=== PATIENT | male | born 1935 | race Caucasian/White ===

== ENCOUNTER → 2017-03-14 | Outpatient (CLI) | payer OTHER ==
[~2017-03-14] MED LIST: AMLO2.5T PO; CALC625T PO; CHOL100018 PO; CYAN500 PO; PYRI100T2 PO; WARF-57 PO; WARF2.5T85 PO
== END | disposition home or self-care (01) ==
LOC: SHCH 12:07
PROVIDERS: ATTEND Internal Medicine Cardiovascular Disease
DX: I10 Essential (primary) hypertension (principal); I49.5 Sick sinus syndrome; Z95.0 Presence of cardiac pacemaker
CPT/HCPCS: 93306

== ENCOUNTER 2017-05-17 13:07 | Inpatient (IN) | payer OTHER ==
[~2017-05-17] VITALS: Ht 172.7 cm; Wt 81.6 kg
[~2017-05-17 13:07] MED LIST changes: -CALC625T PO; -WARF-57 PO; -WARF2.5T85 PO
[2017-05-17] MEDS ORDERED: ONDANSETRON HCL 4 MG/2 ML VIAL ONE (13:32)
[2017-05-17 15:10] LABS: CREATININE 1.2 mg/dL (0.5-1.5); POTASSIUM 4.1 mmol/L (3.5-5.1)
[2017-05-17] MEDS ORDERED: IOPAMIDOL-370 75 ML VIAL IV ONE (15:30)
[2017-05-17] MEDS ORDERED: SODIUM CHLORIDE 0.9% 1000ML 1,000 ML IV ONE (19:53)
[2017-05-18 00:45] VITALS: BP 107/75
[2017-05-18] MEDS ORDERED: ALBUTEROL SULFATE 0.083% 2.5 MG/3 ML INH IH PRN (01:30)
[2017-05-18] MEDS ORDERED: POTASSIUM CHLORIDE 20MEQ/100ML 100 ML IV PRN (01:30)
[2017-05-18] MEDS ORDERED: POTASSIUM CHLORIDE 10% ELIXIR 20 MEQ/15 ML UDCUP PO PRN (01:30)
[2017-05-18] MEDS ORDERED: LIDOCAINE HCL-MPF 1% 2ML VIAL IVP PRN (01:30)
[2017-05-18] MEDS ORDERED: HYDRALAZINE HCL 20 MG/ML VIAL IV PRN ×2 (01:30→07:30)
[2017-05-18] MEDS ORDERED: ONDANSETRON HCL 4 MG/2 ML VIAL IVP PRN (01:30)
[2017-05-18 03:37] LABS: HEMATOCRIT 46.1 % (42-54); MEAN CORPUSCULAR HEMOGLOBIN 31.5 pg (27.0-33.0); MEAN CORPUSCULAR HGB CONC 34.3 g/dL (32.0-36.0); MEAN CORPUSCULAR VOLUME 91.8 fL (79-99); PLATELET COUNT (AUTO) 236 K/uL (130-400); RED BLOOD CELL COUNT(AUTO) 5.02 MIL/uL (4.50-6.20); RED CELL DISTRIBUTION WIDTH 13.3 % (11.0-15.5); WHITE BLOOD COUNT (AUTO) 23.1 K/uL (4.8-10.8)
[2017-05-18 03:40] VITALS: BP 107/60
[2017-05-18 03:43] LABS: INR 2.86 (0.85-1.15); PROTHROMBIN TIME 29.4 SEC (9.6-11.6)
[2017-05-18 03:45] LABS: CREATININE 1.3 mg/dL (0.5-1.5); POTASSIUM 3.9 mmol/L (3.5-5.1)
[2017-05-18 07:00] VITALS: BP 120/71
[2017-05-18] MEDS ORDERED: ONDANSETRON HCL 4 MG/2 ML VIAL IV PRN (07:30)
[2017-05-18] MEDS ORDERED: MAG HYDROX/AL HYDROX/SIMETH ES 30 ML SUSP UDCUP PO PRN (07:30)
[2017-05-18] MEDS ORDERED: GUAIFENESIN-DM 200/20 MG 10 ML PO PRN (07:30)
[2017-05-18] MEDS ORDERED: LACTULOSE 20 GM/30 ML UDCUP PO PRN (07:30)
[2017-05-18] MEDS ORDERED: NITROGLYCERIN 0.4 MG SL TAB SL PRN (07:30)
[2017-05-18] MEDS ORDERED: ACETAMINOPHEN 325 MG TAB PO PRN ×2 (07:30)
[2017-05-18] MEDS ORDERED: MORPHINE SULFATE 2 MG/ML 1ML SYG IVP PRN (07:45)
[2017-05-18] MEDS ORDERED: ACETAMINOPHEN-CODEINE 300/30MG TAB PO PRN (07:45)
[2017-05-18] MEDS ORDERED: LABETALOL 20 MG/4 ML DISP.SYRIN IV PRN (07:45)
[2017-05-18] MEDS ORDERED: FAMOTIDINE/PF 20 MG/2 ML VIAL IV SCH (09:00)
[2017-05-18] MEDS: FAMOTIDINE/PF 20 MG/2 ML VIAL IV SCH (09:36)
[2017-05-18] MEDS: LEVOFLOXACIN 500 MG/D5W 100 ML 100 ML IV SCH (09:39)
[2017-05-18] MEDS: SODIUM CHLORIDE 0.9% 1000ML 1,000 ML IV SCH ×2 (09:40→16:50)
[2017-05-18 11:00] VITALS: BP 111/70
[2017-05-18 13:50] LABS: APPEARANCE,URINE CLEAR (CLEAR); BILIRUBIN,URINE NEGATIVE (NEGATIVE); COLOR,URINE YELLOW (YELLOW); GLUCOSE, URINE (UA) NEGATIVE (NEGATIVE); KETONES,URINE 5 mg/dL (NEGATIVE); LEUKOCYTE ESTERASE ,URINE NEGATIVE (NEGATIVE); NITRATE,URINE NEGATIVE (NEGATIVE); OCCULT BLOOD,URINE NEGATIVE (NEGATIVE); PROTEIN,URINE TRACE (NEGATIVE)
[2017-05-18 14:03] LABS: BACTERIA,URINE None Seen /HPF (None Seen); RBC,URINE None Seen /HPF (0-1); SQUAMOUS EPITHELIAL CELL,UR Rare /LPF (0-2); WBC,URINE None Seen /HPF (0-1)
[2017-05-18 16:00] VITALS: BP 126/75
[2017-05-18 19:15] VITALS: BP 128/75
[2017-05-18 20:21] LABS: INR 1.66 (0.85-1.15); PROTHROMBIN TIME 17.3 SEC (9.6-11.6)
[2017-05-19] VITALS (21 sets, daily range): BP systolic 93–149; BP diastolic 55–80
[2017-05-19 04:26] LABS: INR 1.61 (0.85-1.15); PROTHROMBIN TIME 16.7 SEC (9.6-11.6)
[2017-05-19 04:31] LABS: HEMATOCRIT 42.7 % (42-54); MEAN CORPUSCULAR HEMOGLOBIN 32.3 pg (27.0-33.0); MEAN CORPUSCULAR HGB CONC 34.5 g/dL (32.0-36.0); MEAN CORPUSCULAR VOLUME 93.5 fL (79-99); PLATELET COUNT (AUTO) 210 K/uL (130-400); RED BLOOD CELL COUNT(AUTO) 4.57 MIL/uL (4.50-6.20); RED CELL DISTRIBUTION WIDTH 13.1 % (11.0-15.5)
[2017-05-19 04:32] LABS: ALBUMIN 2.9 g/dL (3.5-5.0); BILIRUBIN,TOTAL 1.5 mg/dL (0.2-1.0); CREATININE 1.2 mg/dL (0.5-1.5); MAGNESIUM 1.9 mg/dL (1.80-2.40); POTASSIUM 3.7 mmol/L (3.5-5.1); TOTAL PROTEIN, SERUM 7.4 g/dL (6.0-8.3)
[2017-05-19 05:07] LABS: BAND NEUTROPHILS % (MANUAL) 3 % (0-2); BASOPHILS % (MANUAL) 8 % (0-2); EOSINOPHILS % (MANUAL) 9 % (1-6); LYMPHOCYTES % (MANUAL) 29 % (22-44); MAN.DIFF COMMENT-IMPRESSION MANUAL DIFFERENTIAL; MONOCYTES % (MANUAL) 3 % (2-9); SEGMENTED NEUTROPHILS % 48 % (40-70)
[2017-05-19 05:09] LABS: PLATELET MORPHOLOGY COMMENT ADEQUATE
[2017-05-19] MEDS ORDERED: PROPOFOL 10 MG/ML 20ML VIAL IV ONE ×2 (07:27→07:36)
[2017-05-19] MEDS ORDERED: FENTANYL CITRATE PF 50 MCG/1 ML 2ML VIAL ONE (07:27)
[2017-05-19] MEDS ORDERED: GLYCOPYRROLATE 0.2 MG/ML 5 ML VIAL ONE (07:30)
[2017-05-19] MEDS ORDERED: LIDOCAINE HCL 2% 20ML ONE (07:30)
[2017-05-19] MEDS: LEVOFLOXACIN 500 MG/D5W 100 ML 100 ML IV SCH (09:34)
[2017-05-19] MEDS: FAMOTIDINE/PF 20 MG/2 ML VIAL IV SCH (09:34)
[2017-05-19] MEDS: DEXTROSE 5 %-0.45 % NACL 1,000 ML IV SCH ×2 (11:49→12:29)
[2017-05-19] MEDS ORDERED: WARF2.5T85 PO (23:27)
[2017-05-19] MEDS ORDERED: WARF-57 PO (23:27)
[2017-05-19] MEDS ORDERED: CALC625T PO (23:27)
[2017-05-20 03:13] VITALS: BP 129/78
[2017-05-20 05:52] LABS: HEMATOCRIT 46.1 % (42-54); MEAN CORPUSCULAR HEMOGLOBIN 31.8 pg (27.0-33.0); MEAN CORPUSCULAR VOLUME 93.6 fL (79-99); PLATELET COUNT (AUTO) 207 K/uL (130-400); RED BLOOD CELL COUNT(AUTO) 4.93 MIL/uL (4.50-6.20); RED CELL DISTRIBUTION WIDTH 12.8 % (11.0-15.5)
[2017-05-20 06:01] LABS: CREATININE 1.1 mg/dL (0.5-1.5); POTASSIUM 3.5 mmol/L (3.5-5.1)
[2017-05-20 08:00] VITALS: BP 140/82
[2017-05-20] MEDS: PANTOPRAZOLE SODIUM 40 MG TABLET.DR PO SCH (09:34)
[2017-05-20] MEDS: AMLODIPINE BESYLATE 2.5 MG TAB PO SCH (09:34)
[2017-05-20] MEDS: CYANOCOBALAMIN (VITAMIN B-12) 1,000 MCG TABLET PO SCH (09:34)
[2017-05-20] MEDS: PYRIDOXINE HCL 50 MG TABLET PO SCH (09:34)
[2017-05-20] MEDS: ***HM***(Cholecalciferol (Vitamin D3) (Vitamin D3) 1,000 UNIT) PO SCH (09:52)
[2017-05-20 11:00] VITALS: BP 127/80
[2017-05-20] MEDS: SUCRALFATE 1 GM TABLET PO SCH ×3 (11:22→22:21)
[2017-05-20 16:00] VITALS: BP 127/82
[2017-05-20 20:00] VITALS: BP 140/84
[2017-05-21] VITALS (7 sets, daily range): BP systolic 125–138; BP diastolic 78–85
[2017-05-21 07:15] LABS: HEMATOCRIT 46.6 % (42-54); MEAN CORPUSCULAR HEMOGLOBIN 31.3 pg (27.0-33.0); MEAN CORPUSCULAR VOLUME 92.2 fL (79-99); PLATELET COUNT (AUTO) 265 K/uL (130-400); RED BLOOD CELL COUNT(AUTO) 5.05 MIL/uL (4.50-6.20); WHITE BLOOD COUNT (AUTO) 6.6 K/uL (4.8-10.8)
[2017-05-21 07:27] LABS: CREATININE 1.2 mg/dL (0.5-1.5); POTASSIUM 3.5 mmol/L (3.5-5.1)
[2017-05-21] MEDS: SUCRALFATE 1 GM TABLET PO SCH ×4 (07:30→20:15)
[2017-05-21] MEDS: PANTOPRAZOLE SODIUM 40 MG TABLET.DR PO SCH (07:30)
[2017-05-21 07:35] LABS: INR 1.37 (0.85-1.15); PARTIAL THROMBOPLASTIN TIME 30.8 SEC (26.3-35.5); PROTHROMBIN TIME 14.3 SEC (9.6-11.6)
[2017-05-21] MEDS: AMLODIPINE BESYLATE 2.5 MG TAB PO SCH (07:57)
[2017-05-21] MEDS: ***HM***(Cholecalciferol (Vitamin D3) (Vitamin D3) 1,000 UNIT) PO SCH (08:00)
[2017-05-21] MEDS: PYRIDOXINE HCL 50 MG TABLET PO SCH (08:04)
[2017-05-21] MEDS: CYANOCOBALAMIN (VITAMIN B-12) 1,000 MCG TABLET PO SCH (08:05)
[2017-05-21] MEDS ORDERED: WARFARIN SODIUM 2.5 MG TAB PO SCH (16:00)
[2017-05-22 03:35] VITALS: BP 128/83
[2017-05-22 05:15] LABS: CREATININE 1.1 mg/dL (0.5-1.5); POTASSIUM 3.2 mmol/L (3.5-5.1)
[2017-05-22] MEDS: SUCRALFATE 1 GM TABLET PO SCH ×2 (06:18→11:52)
[2017-05-22] MEDS: POTASSIUM CHLORIDE 20 MEQ ERTAB PO PRN ×4 (06:18→11:53)
[2017-05-22] MEDS: PANTOPRAZOLE SODIUM 40 MG TABLET.DR PO SCH (07:09)
[2017-05-22 08:18] VITALS: BP 132/83
[2017-05-22] MEDS: ***HM***(Cholecalciferol (Vitamin D3) (Vitamin D3) 1,000 UNIT) PO SCH (09:00)
[2017-05-22] MEDS: CYANOCOBALAMIN (VITAMIN B-12) 1,000 MCG TABLET PO SCH (09:00)
[2017-05-22] MEDS: AMLODIPINE BESYLATE 2.5 MG TAB PO SCH (09:00)
[2017-05-22] MEDS: PYRIDOXINE HCL 50 MG TABLET PO SCH (09:00)
[2017-05-22] MEDS ORDERED: WARFARIN SODIUM 5 MG TAB PO SCH (16:00)
== END 2017-05-22 12:05 | disposition home or self-care (01) | DRG 392 ==
LOC: EDH 13:07 → EDHIP 18:30 → OBSVTOIN 18:30 → 3AH 05-18 00:20 → 3DH 05-20 00:09
PROVIDERS: ADMIT Internal Medicine; ATTEND Internal Medicine
PROC: 30233K1 Transfusion of Nonautologous Frozen Plasma into Peripheral Vein, Percutaneous Approach (ICD-10-PCS; principal; 2017-05-19)
PROC: 0D738ZZ Dilation of Lower Esophagus, Via Natural or Artificial Opening Endoscopic (ICD-10-PCS; 2017-05-19)
DX: K21.0 Gastro-esophageal reflux disease with esophagitis (principal); I48.91 Unspecified atrial fibrillation; R17 Unspecified jaundice; R13.10 Dysphagia, unspecified; I25.10 Atherosclerotic heart disease of native coronary artery without angina pectoris; D72.829 Elevated white blood cell count, unspecified; I10 Essential (primary) hypertension; K31.89 Other diseases of stomach and duodenum; Z79.01 Long term (current) use of anticoagulants; Z85.46 Personal history of malignant neoplasm of prostate; Z87.891 Personal history of nicotine dependence; Z95.0 Presence of cardiac pacemaker; Z90.79 Acquired absence of other genital organ(s)
CPT/HCPCS: 36415; 36430; 70492; 71046; 74230; 80048; 80053; 81001; 83735; 84100; 85025; 85027; 85610; 85730; 86850; 86900; 86901; 86927; 92611; 93005; 94664; C1726; J1956; J2405; J2704; J3010; J3490; J7030; J7042; P9017; Q9967